=== PATIENT | male | born 1950 | race Caucasian/White ===

== ENCOUNTER 2016-04-01 15:31 | Inpatient (IN) | payer MEDICARE, BC ==
[~2016-04-01] VITALS: Ht 180.3 cm; Wt 90.0 kg
[~2016-04-01 15:31] MED LIST: ASPI-535 PO; ATOR40TA68 PO; METH10TA2 PO; OXYC-536 PO; TAMS-14 PO
[2016-04-01] MEDS ORDERED: NITROGLYCERIN 2% 1 GM OINT PKT TD STA (15:36)
--- NOTE | 2016-04-01 16:10 | RADRPT ---
PROCEDURE: XR Chest 1 View. CLINICAL INDICATION: Chest pain TECHNIQUE: AP view of the chest were obtained. COMPARISON: None. FINDINGS: The heart size is within normal limits. Calcified atherosclerosis is noted in the aorta. Minimal at electasis is noted in the bilateral lower lobes. No consolidations are identified. No pneumothorax is seen. Osseous structures are intact. IMPRESSION: Calcified atherosclerosis in the aorta. Minimal atelectasis in the lower lobes. RPTAT: AA .Dieter Escamilla MD, MD Date Time Electronically viewed and signed by .Dieter Escamilla MD, on 04/01/2016 16:09 .P/
[2016-04-01 16:15] LABS: BASOPHILS % 0.6 % (0.0-2.0); EOSINOPHILS # 0.4 10^3/ul (0.0-0.5); EOSINOPHILS % 5.9 % (0.0-7.0); HEMOGLOBIN 11.9 g/dl (14.0-18.0); LYMPHOCYTES # 1.5 10^3/ul (0.8-2.9); LYMPHOCYTES % 19.4 % (15.0-51.0); MEAN CORPUSCULAR HEMOGLOBIN 29.8 pg (29.0-33.0); MEAN CORPUSCULAR HGB CONC 33.1 g/dl (32.0-37.0); MEAN PLATELET VOLUME 6.1 fl (7.4-10.4); MONOCYTE # 0.4 10^3/ul (0.3-0.9); MONOCYTES % 4.9 % (0.0-11.0); NEUTROPHIL # 5.3 10^3/ul (1.6-7.5); NEUTROPHILS % 69.2 % (39.0-77.0); PLATELET COUNT 267 10^3/UL (140-440); RED CELL DISTRIBUTION WIDTH 14.2 % (11.5-14.5); UNCORRECTED WBC 7.6 10^3/ul (4.8-10.8); WHITE BLOOD COUNT 7.6 10^3/ul (4.8-10.8)
[2016-04-01 16:16] LABS: CONDITION 1
[2016-04-01] MEDS ORDERED: ALPR0.5T6 PO (16:19)
[2016-04-01] MEDS ORDERED: DONE5TAB32 PO (16:20)
[2016-04-01] MEDS ORDERED: FLUO10TA PO (16:20)
[2016-04-01 16:25] LABS: INR 0.89; PT RATIO 0.9
[2016-04-01 16:26] LABS: CHLORIDE 103 mmol/L (97-110); PARTIAL THROMBOPLASTIN TIME 29.7 Sec (25.0-35.0); POTASSIUM 4.3 mmol/L (3.5-5.1); SODIUM 143 mmol/L (135-144)
[2016-04-01 16:29] LABS: ANION GAP 16 (8-16); BLOOD UREA NITROGEN 13 mg/dl (7-20); CARBON DIOXIDE 28 mmol/L (21-31); CREATININE 0.94 mg/dl (0.61-1.24)
[2016-04-01 16:30] LABS: CALCIUM 8.9 mg/dl (8.4-10.2); GLUCOSE 84 mg/dl (70-220)
[2016-04-01 16:43] LABS: TROPONIN-I < 0.012 ng/ml (0.00-0.12)
[2016-04-01] MEDS ORDERED: ACETAMINOPHEN 325 MG TAB PO PRN ×2 (17:30→21:30)
[2016-04-01] MEDS ORDERED: ONDANSETRON 4 MG INJ IV PRN ×2 (17:30→21:30)
--- NOTE | 2016-04-01 17:41 | ERA ---
ER Documentation Chief Complaint Date/Time DATE: 04/01/16 TIME: 17:38 Chief Complaint BIB [facility] FOR CHEST PAIN ON AND OFF X 1 WEEK WITH SOB HPI Patient is a 65-year-old male with hypertension and coronary disease who presents with chest pain. He was brought in by ambulance. He also had bradycardia. He was given aspirin by paramedics. He complains of shortness of breath as well. The symptoms started 1 week ago but gotten worse over the week and was worse today. He does not have any pain currently. 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 However upon review of old medical records this is the patient's first visit to the emergency department. ROS All systems reviewed and are negative except as per history of present illness. Medications Home Meds Reported Medications Fluoxetine Hcl* (Prozac*) 10 Mg Tablet, 10 MG PO DAILY, TAB 04/01/16 Donepezil* (Aricept*) 5 Mg Tablet, 5 MG PO DAILY, TAB 04/01/16 Alprazolam* (Alprazolam*) 0.5 Mg Tablet, 0.5 MG PO BID Y for ANXIETY, TAB 04/01/16 Aspirin Ec (Aspir 81) 81 Mg Tablet.dr, 81 MG PO DAILY, TAB 10/13/14 Tamsulosin Hcl* (Flomax*) 0.4 Mg Cap.er.24h, 0.4 MG PO DAILY, CAP 10/13/14 Atorvastatin* (Atorvastatin*) 40 Mg Tablet, 40 MG PO HS, TAB 10/13/14 Oxycodone Hcl* (Oxycontin*) 15 Mg Tab.sr.12h, 15 MG PO TID, TAB 10/13/14 Methadone Hcl* (Methadone*) 10 Mg Tab, 10 MG PO TID Y for BREAKTHROUGH PAIN, TAB 10/13/14 Allergies Allergies: Coded Allergies: No Known Allergies (Verified Allergy, Unknown, 10/13/14) PMhx/Soc History of Surgery: Yes (HEART SX,BILATERAL CTR, RIGHT HAND SX, STENT ) Anesthesia Reaction: No Hx Neurological Disorder: No Hx Respiratory Disorders: No Hx Cardiac Disorders: Yes (HTN) Hx Psychiatric Problems: No Hx Miscellaneous Medical Probl: Yes (CHRONIC PAIN) Hx Alcohol Use: No Hx Substance Use: No Hx Tobacco Use: No Smoking Status: Never smoker FmHx Family History: coronary disease Physical Exam Vitals Vital Signs Date Time Temp Pulse Resp B/P Pulse Ox O2 Delivery O2 Flow Rate FiO2 04/01/16 17:00 52 18 120/68 100 Nasal Cannula 2.0 04/01/16 16:35 41 18 137/60 100 Nasal Cannula 2.0 04/01/16 16:07 Nasal Cannula 2 04/01/16 16:03 98.0 82 18 158/88 98 Physical Exam Const: No acute distress Head: Atraumatic Eyes: Normal Conjunctiva ENT: Normal External Ears, Nose and Mouth. Neck: Full range of motion..~ No meningismus. Resp: Clear to auscultation bilaterally Cardio: Bradycardia without murmur Abd: Soft, non tender, non distended. Normal bowel sounds Skin: No petechiae or rashes Back: No midline or flank tenderness Ext: No cyanosis, or edema Neur: Awake and alert Psych: Normal Mood and Affect Result Diagram: 04/01/16 1600 04/01/16 1600 Results 24 hrs Laboratory Tests Test 04/01/16 16:00 Activated Partial Thromboplast Time 29.7Sec Anion Gap 16 Basophils # 0.010^3/ul Basophils % 0.6% Blood Morphology Comment Blood Urea Nitrogen 13mg/dl Calcium Level 8.9mg/dl Carbon Dioxide Level 28mmol/L Chloride Level 103mmol/L Creatinine 0.94mg/dl Eosinophils # 0.410^3/ul Eosinophils % 5.9% Glucose Level 84mg/dl Hematocrit 36.0% Hemoglobin 11.9g/dl INR International Normalized Ratio 0.89 Lymphocytes # 1.510^3/ul Lymphocytes % 19.4% Mean Corpuscular Hemoglobin 29.8pg Mean Corpuscular Hemoglobin Concent 33.1g/dl Mean Corpuscular Volume 90.0fl Mean Platelet Volume 6.1fl Monocytes # 0.410^3/ul Monocytes % 4.9% Neutrophils # 5.310^3/ul Neutrophils % 69.2% Nucleated Red Blood Cells # 0.010^3/ul Nucleated Red Blood Cells % 0.0/100WBC Platelet Count 74291^3/UL Potassium Level 4.3mmol/L Prothrombin Time 12.0Sec Prothrombin Time Ratio 0.9 Red Blood Count 4.0010^6/ul Red Cell Distribution Width 14.2% Sodium Level 143mmol/L Troponin I < 0.012ng/ml White Blood Count 7.610^3/ul Current Medications Medications (Trade) Dose Ordered Sig/Shelly Route PRN Reason Start Time Stop Time Status Last Admin Dose Admin Nitroglycerin (Nitroglycerin 2% Oint) 1 inch ONCE STAT TD 04/01/16 15:36 04/01/16 15:45 DC 04/01/16 16:09 Ondansetron HCl (Zofran Inj) 4 mg ER BRIDGE PRN IV NAUSEA AND/OR VOMITING 04/01/16 17:30 04/02/16 17:29 Acetaminophen (Tylenol Tab) 650 mg ER BRIDGE PRN PO MILD PAIN/FEVER 04/01/16 17:30 04/02/16 17:29 Procedures/MDM EKG #1 read by me: Rate/Rhythm: Sinus bradycardia rate of 48 Intervals: Normal Impression: Sinus bradycardia without evidence of ischemia EKG #2 read by me: Rate/Rhythm: Sinus bradycardia rate of 54 Intervals: Normal Impression: Is pericardial without evidence of ischemia Chest x-ray negative for pneumonia or pneumothorax per radiology. Patient is a 65-year-old male with multiple cardiac risk factors who presents with bradycardia and chest pain. He has a sinus bradycardia but has become bradycardic into the 30s at times and therefore pacer pads were applied. The patient was given aspirin by paramedics. Nitroglycerin paste was given in the emergency department. The patient has accountable IPA but is unstable for transfer. Therefore he will be admitted to Dr. Ford who covers for accountable IPA here at the hospital. The patient will be admitted to a telemetry bed. At this point I doubt pneumonia, pneumothorax, pulmonary embolism, or aortic dissection. Critical Care: Time: 35 minutes excluding all billable procedures. Treatments/Evaluations: Close monitoring and treatment of unstable vital signs, cardiorespiratory, and neurologic status, while maintaining tight balance of fluid, respiratory, and cardiac interventions. Departure Diagnosis: Primary Impression: Bradycardia Additional Impressions: Chest pain Qualified Code: R07.9 - Chest pain, unspecified type Anemia Qualified Code: D64.9 - Anemia, unspecified type Condition: AMARILIS Childs MD Apr 01, 2016 17:40
[2016-04-01] MEDS ORDERED: ALPRAZOLAM 0.5 MG TAB PO PRN (21:30)
[2016-04-01] MEDS ORDERED: NACL 0.9% 3 ML SYG IV SCH (21:30)
[2016-04-01] MEDS ORDERED: METHADONE 10 MG TAB PO PRN (21:30)
[2016-04-01] MEDS ORDERED: morphine 2 MG INJ IV PRN (21:30)
[2016-04-01 22:46] LABS: CREATINE KINASE 167 IU/L (23-200)
[2016-04-01 22:57] LABS: CK-MB 3.87 ng/ml (0.0-2.4)
[2016-04-01 23:02] LABS: TROPONIN-I < 0.012 ng/ml (0.00-0.12)
[2016-04-02 05:18] LABS: ALBUMIN 3.5 g/dl (3.3-4.9)
[2016-04-02 05:19] LABS: POTASSIUM 4.4 mmol/L (3.5-5.1)
[2016-04-02 05:21] LABS: ALBUMIN/GLOBULIN RATIO 1.29; BILIRUBIN,INDIRECT 0.3 mg/dl (0-1.1); BILIRUBIN,TOTAL 0.3 mg/dl (0.2-1.3); CREATININE 0.79 mg/dl (0.61-1.24); TOTAL PROTEIN 6.2 g/dl (6.1-8.1)
[2016-04-02 06:09] LABS: BASOPHILS % 0.8 % (0.0-2.0); EOSINOPHILS # 0.4 10^3/ul (0.0-0.5); EOSINOPHILS % 8.9 % (0.0-7.0); HEMOGLOBIN 11.4 g/dl (14.0-18.0); LYMPHOCYTES # 1.6 10^3/ul (0.8-2.9); LYMPHOCYTES % 32.3 % (15.0-51.0); MEAN CORPUSCULAR HEMOGLOBIN 30.2 pg (29.0-33.0); MEAN CORPUSCULAR HGB CONC 33.5 g/dl (32.0-37.0); MEAN CORPUSCULAR VOLUME 90.4 fl (82.0-101.0); MONOCYTE # 0.4 10^3/ul (0.3-0.9); MONOCYTES % 8.2 % (0.0-11.0); NEUTROPHIL # 2.5 10^3/ul (1.6-7.5); NEUTROPHILS % 49.8 % (39.0-77.0); PLATELET COUNT 268 10^3/UL (140-440); RED BLOOD COUNT 3.76 10^6/ul (4.70-6.10); RED CELL DISTRIBUTION WIDTH 13.8 % (11.5-14.5)
[2016-04-02 06:16] LABS: CONDITION 1
[2016-04-02 07:28] LABS: CREATINE KINASE 232 IU/L (23-200)
[2016-04-02 07:36] LABS: CK-MB 5.84 ng/ml (0.0-2.4)
[2016-04-02 07:37] LABS: TROPONIN-I < 0.012 ng/ml (0.00-0.12)
[2016-04-02 08:00] VITALS: BP 142/67; RESP 20
[2016-04-02 08:12] VITALS: PULSE 47
[2016-04-02 08:26] VITALS: Ht 180.3 cm; Wt 90.0 kg
[2016-04-02] MEDS ORDERED: ASPIRIN (EC) 81 MG TAB PO SCH (09:00)
[2016-04-02] MEDS ORDERED: oxyCODONE (CR) 15 MG TAB [oxyCONTIN] PO SCH (09:00)
[2016-04-02] MEDS ORDERED: FAMOTIDINE 20 MG INJ IV SCH (09:00)
[2016-04-02] MEDS ORDERED: ENOXAPARIN 30 MG/0.3 ML SYG SC SCH (09:00)
[2016-04-02] MEDS ORDERED: TAMSULOSIN (SR) 0.4 MG CAP PO SCH (09:00)
[2016-04-02] MEDS ORDERED: DONEPEZIL 5 MG TAB PO SCH (09:00)
[2016-04-02] MEDS ORDERED: FLUOXETINE 10 MG CAP PO SCH (09:30)
--- NOTE | 2016-04-02 11:34 | HP ---
Date/Time of Note Date/Time of Note DATE: 04/02/16 TIME: 11:33 Assessment/Plan VTE Prophylaxis VTE Prophylaxis Intervention: LMWH Lines/Catheters IV Catheter Type (from Nrs): Saline Lock Assessment/Plan Chief Complaint/Hosp Course Patient came in with chest pain but left AMA before I was able to see the patient Problems: HPI/ROS Admit Date/Time Admit Date/Time Apr 01, 2016 at 17:20 Hx of Present Illness Patient came in with chest pain but decided to leave AMA prior to me seeing the patient. PMH/Family/Social Past Medical History Unable to obtain Social History Smoking Status: Former smoker Exam/Review of Systems Vital Signs Vitals Vital Signs Date Time Temp Pulse Resp B/P Pulse Ox O2 Delivery O2 Flow Rate FiO2 04/02/16 08:26 Nasal Cannula 2.0 04/02/16 08:12 47 04/02/16 08:00 97.7 20 142/67 99 Exam Exam Unable to examine Labs Result Diagram: 04/02/16 0530 04/02/16 0430 WENCESLAO JOHNSON Apr 02, 2016 11:34
--- NOTE | 2016-04-02 11:35 | DS ---
Date/Time of Note Date/Time of Note DATE: 04/02/16 TIME: 11:34 Discharge Summary Admission/Discharge Info Admit Date/Time Apr 01, 2016 at 17:20 Discharge Date/Time Apr 02, 2016 at 09:35 Final Diagnosis chest pain Hx of Present Illness Patient came in with chest pain but decided to leave AMA prior to me seeing the patient. Hospital Course Patient came in with chest pain but left AMA before I was able to see the patient Home Meds Reported Medications Fluoxetine Hcl* (Prozac*) 10 Mg Tablet, 10 MG PO DAILY, TAB 04/01/16 Donepezil* (Aricept*) 5 Mg Tablet, 5 MG PO DAILY, TAB 04/01/16 Alprazolam* (Alprazolam*) 0.5 Mg Tablet, 0.5 MG PO BID Y for ANXIETY, TAB 04/01/16 Aspirin Ec (Aspir 81) 81 Mg Tablet.dr, 81 MG PO DAILY, TAB 10/13/14 Tamsulosin Hcl* (Flomax*) 0.4 Mg Cap.er.24h, 0.4 MG PO DAILY, CAP 10/13/14 Atorvastatin* (Atorvastatin*) 40 Mg Tablet, 40 MG PO HS, TAB 10/13/14 Oxycodone Hcl* (Oxycontin*) 15 Mg Tab.sr.12h, 15 MG PO TID, TAB 10/13/14 Methadone Hcl* (Methadone*) 10 Mg Tab, 10 MG PO TID Y for BREAKTHROUGH PAIN, TAB 10/13/14 Pending Labs Laboratory Tests Test 04/01/16 16:00 04/01/16 21:55 04/02/16 04:30 04/02/16 05:30 Activated Partial Thromboplast Time 29.7Sec (25.0-35.0) Anion Gap 16 (8-16) 13 (8-16) Basophils # 0.010^3/ul (0.0-0.1) 0.010^3/ul (0.0-0.1) Basophils % 0.6% (0.0-2.0) 0.8% (0.0-2.0) Blood Morphology Comment Blood Urea Nitrogen 13mg/dl (7-20) 12mg/dl (7-20) Calcium Level 8.9mg/dl (8.4-10.2) 9.0mg/dl (8.4-10.2) Carbon Dioxide Level 28mmol/L (21-31) 31mmol/L (21-31) Chloride Level 103mmol/L (97-110) 103mmol/L (97-110) Creatinine 0.94mg/dl (0.61-1.24) 0.79mg/dl (0.61-1.24) Eosinophils # 0.410^3/ul (0.0-0.5) 0.410^3/ul (0.0-0.5) Eosinophils % 5.9% (0.0-7.0) 8.9% (0.0-7.0) Glucose Level 84mg/dl (70-220) 78mg/dl (70-220) Hematocrit 36.0% (42.0-52.0) 34.0% (42.0-52.0) Hemoglobin 11.9g/dl (14.0-18.0) 11.4g/dl (14.0-18.0) INR International Normalized Ratio 0.89 Lymphocytes # 1.510^3/ul (0.8-2.9) 1.610^3/ul (0.8-2.9) Lymphocytes % 19.4% (15.0-51.0) 32.3% (15.0-51.0) Mean Corpuscular Hemoglobin 29.8pg (29.0-33.0) 30.2pg (29.0-33.0) Mean Corpuscular Hemoglobin Concent 33.1g/dl (32.0-37.0) 33.5g/dl (32.0-37.0) Mean Corpuscular Volume 90.0fl (82.0-101.0) 90.4fl (82.0-101.0) Mean Platelet Volume 6.1fl (7.4-10.4) 6.0fl (7.4-10.4) Monocytes # 0.410^3/ul (0.3-0.9) 0.410^3/ul (0.3-0.9) Monocytes % 4.9% (0.0-11.0) 8.2% (0.0-11.0) Neutrophils # 5.310^3/ul (1.6-7.5) 2.510^3/ul (1.6-7.5) Neutrophils % 69.2% (39.0-77.0) 49.8% (39.0-77.0) Nucleated Red Blood Cells # 0.010^3/ul (0.0-0.0) 0.010^3/ul (0.0-0.0) Nucleated Red Blood Cells % 0.0/100WBC (0.0-0.0) 0.0/100WBC (0.0-0.0) Platelet Count 00953^3/UL (140-440) 11494^3/UL (140-440) Potassium Level 4.3mmol/L (3.5-5.1) 4.4mmol/L (3.5-5.1) Prothrombin Time 12.0Sec (12.2-14.2) Prothrombin Time Ratio 0.9 Red Blood Count 4.0010^6/ul (4.70-6.10) 3.7610^6/ul (4.70-6.10) Red Cell Distribution Width 14.2% (11.5-14.5) 13.8% (11.5-14.5) Sodium Level 143mmol/L (135-144) 143mmol/L (135-144) Troponin I < 0.012ng/ml (0.00-0.12) < 0.012ng/ml (0.00-0.12) < 0.012ng/ml (0.00-0.12) White Blood Count 7.610^3/ul (4.8-10.8) 5.010^3/ul (4.8-10.8) Creatine Kinase 167IU/L (23-200) 232IU/L (23-200) Creatine Kinase Index 2.3 2.5 Creatinine Kinase MB (Mass) 3.87ng/ml (0.0-2.4) 5.84ng/ml (0.0-2.4) Alanine Aminotransferase (ALT/SGPT) 33IU/L (13-69) Albumin 3.5g/dl (3.3-4.9) Albumin/Globulin Ratio 1.29 Alkaline Phosphatase 92IU/L (42-121) Aspartate Amino Transf (AST/SGOT) 28IU/L (15-46) Direct Bilirubin 0.00mg/dl (0.00-0.20) Globulin 2.70g/dl (1.3-3.2) Indirect Bilirubin 0.3mg/dl (0-1.1) Total Bilirubin 0.3mg/dl (0.2-1.3) Total Protein 6.2g/dl (6.1-8.1) WENCESLAO JOHNSON Apr 02, 2016 11:35
--- NOTE | 2016-04-02 14:28 | RADRPT ---
Echocardiogram Report Patient Name: ANDERSON ARNDT Gender: Male Date: 1950 Study Date: 02-Apr-2016 Supervisor Contact Lens: Madelin Andrade RDCS Location: ER Ref. Physician: DENNIS KYLE Quality: Good Procedures: Transthoracic echocardiogram with complete 2D, M-Mode, and doppler examination. Indications: Shortness of breath. 2D/M Mode Doppler Measurement Value Normal Ranges Measurement Value Normal Ranges LVIDd 2D 5.3 3.5 - 5.6 cm AV Peak Larry 1.3 m/sec LVIDs 2D 2.8 2.1 - 4.1 cm AV Peak PG 6.5 mmHg LVPWd 2D 0.7 0.6 - 1.1 cm LVOT Peak Larry 1.2 m/sec IVSd 2D 0.8 0.6 - 1.1 cm LVOT Peak PG 6.2 mmHg AoR Diam 2D 2.7 2.0 - 3.7 cm MV E Peak Larry 0.8 m/sec EDV 2D 132.7 cm3 MV A Peak Larry 0.8 m/sec ESV 2D 21.6 cm3 MV E/A 1.0 LA Dimen 2D 3.8 2.3 - 4.0 cm MV Decel Time 214 msec MV Decel Sumner 4 MV E/A 1.0 TR Peak Larry 2.4 m/sec TR Peak PG 22.6 mmHg RVSP 26.0 mmHg Findings Left Ventricle: Normal left ventricular systolic function. Normal left ventricular cavity size. Normal left ventricular wall thickness. Ejection fraction is visually estimated at 60 %. Right Ventricle: Normal right ventricular size. Normal right ventricular systolic function. Left Atrium: The left atrium is normal in size. Right Atrium: The right atrium is normal in size. Mitral Valve: Normal appearance and function of the mitral valve with trace physiologic regurgitation. Aortic Valve: Normal appearance of the aortic valve. No significant aortic stenosis or insufficiency. Tricuspid Valve: Normal appearance of the tricuspid valve. Estimated peak PA systolic pressure 26 mmHg. There is mild tricuspid regurgitation. Pericardium: Normal pericardium with no significant pericardial effusion. Aorta: Normal aortic root. IVC: Normal size and normal respiratory collapse consistent with normal right atrial pressure. Conclusions 1.Normal left ventricular systolic function. Normal left ventricular cavity size. Normal left ventricular wall thickness. Ejection fraction is visually estimated at 60 %. 2.Normal right ventricular size. Normal right ventricular systolic function. 3.The left atrium is normal in size. 4.The right atrium is normal in size. 5.Estimated peak PA systolic pressure 26 mmHg. There is mild tricuspid regurgitation. 6.No significant valvular stenosis or regurgitation seen of remaining visualized valves. 7.Normal pericardium with no significant pericardial effusion. Electronically Signed By: Dennis Kyle 02-Apr-2016 14:27:35 -0800 Patient Name: ANDERSON ARNDT Study Date: 02-Apr-[id number]
[2016-04-02] MEDS ORDERED: ATORVASTATIN 40 MG TAB PO SCH (21:00)
== END 2016-04-02 09:35 | disposition left against medical advice (07) | DRG 313 ==
LOC: E/R 15:31 → TEL 17:20
PROVIDERS: ADMIT Internal Medicine; ATTEND Internal Medicine
DX: R07.9 Chest pain, unspecified (principal); I25.10 Atherosclerotic heart disease of native coronary artery without angina pectoris; I10 Essential (primary) hypertension; Z53.21 Procedure and treatment not carried out due to patient leaving prior to being seen by health care provider; R00.1 Bradycardia, unspecified; D64.9 Anemia, unspecified; Z79.82 Long term (current) use of aspirin
CPT/HCPCS: 71010; 80048; 80053; 82550; 82553; 84484; 85025; 85610; 85730; 93005; 93306

== ENCOUNTER 2017-09-30 13:20 | Emergency (ER) | END 2017-09-30 17:37 | disposition home or self-care (01) ==